=== PATIENT | female | born 1975 | race Two or more races ===

== ENCOUNTER 2019-06-28 06:18 | Observation (INO) | payer MEDICAID ==
[2019-06-26 11:47] LABS: Basophils % (Auto) 0.4 % (0.0-1.8); Eosinophils # (Auto) 0.1 K/mm3 (0.0-0.4); Eosinophils % (Auto) 1.8 % (0.0-4.3); Hematocrit 39.8 % (30.3-42.9); Hemoglobin 13.5 gm/dl (10.1-14.3); Lymphocytes % (Auto) 30.9 % (13.4-35.0); Mean Corpuscular HGB Conc 34 % (30-34); Mean Corpuscular Volume 87 fl (79-97); Monocytes # (Auto) 0.5 K/mm3 (0.0-0.8); Monocytes % (Auto) 8.1 % (0.0-7.3); Platelet Count 196 K/mm3 (140-440); Red Blood Count 4.59 M/mm3 (3.65-5.03); Red Cell Distribution Width 18.2 % (13.2-15.2)
[2019-06-26 11:57] LABS: BUN/Creatinine Ratio 10; Blood Urea Nitrogen 6 mg/dL (7-17); Calcium 8.7 mg/dL (8.4-10.2); Hemolysis Index 14
--- NOTE | 2019-06-26 12:50 | Anesthesia Consultation ---
Anesthesia Consult and Med Hx Date of service: 06/26/19 - Airway Anesthetic Teeth Evaluation: Good ROM Head & Neck: Adequate Mental/Hyoid Distance: Adequate Mallampati Class: Class II Intubation Access Assessment: Good - Pulmonary Exam CTA: Yes - Cardiac Exam Cardiac Exam: RRR - Pre-Operative Health Status ASA Pre-Surgery Classification: ASA2 Proposed Anesthetic Plan: General Nerve Block: TAP - Pulmonary Hx Smoking: Yes (Former smoker) - Cardiovascular System Hx Hypertension: Yes (x 1 yr) - Central Nervous System Hx Psychiatric Problems: No - Other Systems Hx Substance Use: Yes (Marijuana daily) Hx Cancer: No
[~2019-06-28 06:18] MED LIST: LACTATED RINGERS 1,000 ML IV SCH; NEURONTIN PO NR; SUBLIMAZE IV ONE; SUBLIMAZE IV PRN; VERSED IV NR
[2019-06-28] MEDS ORDERED: ANCEF/STERILE WATER 2 GM/20 ML IV NR (07:00)
[2019-06-28] MEDS ORDERED: DECADRON ONE ×2 (07:18→07:34)
[2019-06-28] MEDS ORDERED: ZOFRAN ONE (07:18)
[2019-06-28] MEDS ORDERED: BLOXIVERZ ONE (07:18)
[2019-06-28] MEDS ORDERED: XYLOCAINE MPF 2% ONE (07:18)
[2019-06-28] MEDS ORDERED: SUBLIMAZE ONE (07:18)
[2019-06-28] MEDS ORDERED: ROBINUL ONE (07:18)
[2019-06-28] MEDS ORDERED: DIPRIVAN 10 MG/ML IV ONE (07:18)
[2019-06-28] MEDS ORDERED: ZEMURON IV ONE (07:18)
[2019-06-28] MEDS ORDERED: KETAMINE 50 MG/ML-WATER SYRING ONE (07:19)
[2019-06-28] MEDS ORDERED: NEOSPORIN GU IR ONE ×2 (07:30→09:07)
[2019-06-28] MEDS ORDERED: MARCAINE-EPI 0.25%-1:200,000 INFILTRATI ONE (07:34)
--- NOTE | 2019-06-28 07:38 | History and Physical Report ---
History of Present Illness Date of examination: 06/28/19 Date of admission: 06/28/2019 Chief complaint: DUB History of present illness: 43y/o with dysfunctional uterine bleeding and dysmenorrhea. Pelvic ultrasound demonstrates leiomyomas with the largest being 4.4cm. The patient has failed medical management and elects to undergo definitive surgical management. Past History Past Medical History: hypertension Past Surgical History: section, other (reduction mammoplasty; spinal surgery) - Obstetrical History : 2 Para: 1 Hx # Term Pregnancies: 1 Number of Pregnancies: 0 Spontaneous Abortions: 1 Induced : 0 Number of Living Children: 1 Medications and Allergies Allergies Allergy/AdvReac Type Severity Reaction Status Date / Time alprazolam [From Xanax] Allergy Hives Verified 06/19/19 15:58 Home Medications Medication Instructions Recorded Confirmed Last Taken Type AtorvaSTATin [Lipitor] 20 mg PO QHS 06/19/19 06/28/19 06/14/19 20:00 History Spironolactone [Aldactone] 25 mg PO DAILY 06/19/19 06/28/19 06/14/19 09:00 History HYDROcodone/APAP 10-325 [[place] 10 mg PO Q6H PRN 06/26/19 06/28/19 06/14/19 09:00 History 10-325 mg TAB] amLODIPine [Norvasc] 5 mg PO DAILY 06/26/19 06/28/19 06/28/19 05:00 History Active Meds: Active Medications Cefazolin Sodium (Ancef/Sterile Water 2 Gm/20 Ml) 2 gm IV PREOP NR Stop: 06/28/19 23:59 Celecoxib (Celebrex) 200 mg PO PREOP NR Stop: 06/28/19 23:59 Last Admin: 06/28/19 06:45 Dose: 200 mg Documented by: Fentanyl (Sublimaze) 100 mcg IV ONCE PRN PRN Reason: sedation for nerve block Stop: 06/28/19 23:59 Gabapentin (Neurontin) 300 mg PO PREOP NR Stop: 06/28/19 23:59 Last Admin: 06/28/19 06:45 Dose: 300 mg Documented by: Lactated Ringer's (Lactated Ringers) 1,000 mls @ 100 mls/hr IV DIRECT FRANCISCO Last Admin: 06/28/19 07:00 Dose: 100 mls/hr Documented by: Review of Systems All systems: negative Genitourinary: vaginal bleeding, pelvic pain - Vital Signs Vital signs: Vital Signs Temp Pulse Resp BP Pulse Ox 98.5 F 68 18 131/73 99 06/26/19 10:55 06/26/19 10:55 06/26/19 10:55 06/26/19 10:55 06/26/19 10:55 Temp Pulse Resp BP Pulse Ox 97.9 F 76 18 121/84 98 06/28/19 06:30 06/28/19 06:30 06/28/19 06:45 06/28/19 06:30 06/28/19 06:30 - Physical Exam Breasts: Positive: deferred Cardiovascular: Regular rate Lungs: Positive: Clear to auscultation Abdomen: Positive: normal appearance Results Result Diagrams: 06/26/19 11:36 06/26/19 11:36 All other labs normal. Assessment and Plan - Patient Problems (1) Leiomyoma Current Visit: Yes Status: Acute Plan to address problem: proceed with robotic hysterectomy (2) Dysfunctional uterine bleeding Current Visit: Yes Status: Acute
--- NOTE | 2019-06-28 08:47 | Anesthesia Day of Surgery ---
Anesthesia Day of Surgery - Day of Surgery Patient Examined: Yes Patient H&P Reviewed: Yes Patient is NPO: Yes
[2019-06-28] MEDS ORDERED: NACL 0.9% IR ONE ×2 (09:07→09:08)
--- NOTE | 2019-06-28 09:22 | Operative Report ---
Operative Report Operative Report: Date of surgery: 06/28/2019 Preoperative diagnoses: Symptomatic uterine fibroids; menorrhagia; dysmenorrhea Postoperative diagnoses: Same as above Procedure: Robotic hysterectomy; bilateral salpingectomy Surgeon: Sun Zheng M.D. Regulatory Affairs Portfolio Leader: Dulce Hurtado Anesthesia: Gen. endotracheal anesthesia Estimated blood loss: 25 mL Pathology: Cervix, uterus, bilateral tubes, Leiomyomas Indication: 43-year-old with symptomatic uterine fibroids. The patient failed medical management and elected to undergo definitive surgical management. Procedure: The patient was taken to the operating room and given general endotracheal anesthesia without complication. She is prepped and draped in a normal sterile fashion. A bivalve speculum was placed in the patient's vagina and a single- tooth tenaculum placed on the anterior lip of the cervix. The uterus was sounded with the uterine sound. A [employer] uterine manipulator was placed in the bivalve speculum was then removed. Attention was then turned to the patient's abdomen where a millimeter supra umbilical skin incision was then made. A Veress needle was placed and peritoneal entry was verified water-filled syringe. Insufflation of the peritoneal cavity was performed with CO2 gas. The 12 mm trocar was then placed under direct visualization. An additional 8 mm trocar was placed on the patient's left and right lateral side just opposite of the supraumbilical trocar. An additional 5 mm right lateral trocar was then placed as the accessory port. The patient was then placed in steep Trendelenburg. The da Lavell robot was then engaged. A fenestrated forcep was placed in arm 2 and a vessel sealer was placed in arm 1. The surgeon then transferred to the surgical console. General survey revealed an enlarged fibroid uterus with multiple myomas. The tubes and ovaries were normal in appearance bilaterally. The mesosalpinx was then isolated on the right. The vessel sealer was used to coagulate the mesosalpinx which was then transected. The tube was transected from the ovary. The tubo-ovarian ligament was then coagulated and transected. The round ligament was then coagulated and transected also. The vesicouterine peritoneum was then entered from the patient's right side. The uterine vessels were then coagulated with the vessel sealer. The vessels were then transected . Attention was then turned to the patient's left side where the tubo-ovarian ligament and mesosalpinx were again isolated coagulated and transected. The vesical peritoneum was then entered from the left and joined in the midline. Peritoneum was reflected off of the lower uterine segment. Uterine vessels were then coagulated and then transected. The blood supply to the uterus was adequately contained, a posterior colpotomy was made. The V care ring was visualized. Posterior colpotomy was created with the monopolar scissors. The incision was continued circumferentially until anterior colpotomy was made. The cervix and uterus were amputated from the vaginal cuff. The monopolar scissors were used in order to extract of the myomas in order to decompress the uterus. Passage through the vagina. 2 leiomyomas were removed and the uterus was bivalved. The uterus was then removed along with the leiomyoma and tubes bilaterally through the vagina and a warm laparotomy sponge was placed and maintain the pneumoperitoneum. The vaginal cuff was then closed in a running fashion with V lock suture. Irrigation of the pelvis was performed. Hemoblast was applied to the incision. The supraumbilical 12 mm trocar site was closed with the Julián Banks device. The skin was then reapproximated with 4-0 Monocryl. The tissue was sent to pathology which included the cervix, leiomyomas, tubes and uterus. The patient was then successfully extubated. She was then taken to the recovery room in stable condition. All sponge laps and needle counts were correct x2.
[2019-06-28] MEDS ORDERED: PERCOCET 5/325 PO PRN (09:23)
[2019-06-28] MEDS ORDERED: AMBIEN PO PRN (09:23)
[2019-06-28] MEDS ORDERED: MORPHINE IV PRN (09:23)
[2019-06-28] MEDS ORDERED: ZOFRAN IV PRN (09:23)
[2019-06-28] MEDS ORDERED: IBUPROFEN PO PRN (09:23)
[2019-06-28] MEDS: DILAUDID IV PRN ×4 (09:50→10:26)
[2019-06-28] MEDS ORDERED: D5LR 1,000 ML IV SCH (10:00)
[2019-06-28] MEDS ORDERED: LACTATED RINGERS 1,000 ML ONE (10:23)
[2019-06-28] MEDS ORDERED: TORADOL ONE (10:25)
[2019-06-28] MEDS: TORADOL IV SCH ×3 (10:25→21:28)
[2019-06-28] MEDS ORDERED: AFLURIA QUAD 2019-2020 (3YR UP) IM ONE (11:32)
--- NOTE | 2019-06-28 11:32 | Post Anesthesia Evaluation ---
- Post Anesthesia Evaluation Patient Participated: Yes Airway Patent: Yes Stable Respiratory Function: Yes Nausea/Vomiting: No Temp > 96.8F: Yes Pain Manageable: Yes Adequeate Hydration: Yes Anesthesia Complications: No
[2019-06-29 03:38] LABS: Hemoglobin 12.6 gm/dl (10.1-14.3)
[2019-06-29] MEDS: TORADOL IV SCH (04:06)
--- NOTE | 2019-06-29 07:58 | Progress Note ---
Assessment and Plan - Patient Problems (1) Leiomyoma Current Visit: Yes Status: Acute Plan to address problem: patient doing well discharge home (2) Dysfunctional uterine bleeding Current Visit: Yes Status: Acute Subjective - Subjective Date of service: 06/29/19 Interval history: Patient without complaints. Reports tolerating clear diet. Pain controlled Patient reports: appetite normal, voiding normally, pain well controlled Objective - Vital Signs Latest vital signs: Vital Signs Temp Pulse Pulse Resp BP BP Pulse Ox 06/29/19 05:18 98.6 F 68 20 122/74 99 06/29/19 04:36 18 06/29/19 04:06 18 06/29/19 01:30 98.5 F 66 18 117/66 97 06/28/19 22:00 80 18 06/28/19 21:58 18 06/28/19 21:43 98.1 F 81 18 130/74 99 06/28/19 21:28 18 06/28/19 16:18 97.8 F 74 16 117/73 96 06/28/19 10:50 97.5 F L 81 16 146/76 96 06/28/19 10:45 74 16 135/77 96 06/28/19 10:30 98.5 F 74 15 129/74 96 06/28/19 10:27 66 14 129/76 96 06/28/19 10:26 14 06/28/19 10:25 14 06/28/19 10:17 14 06/28/19 10:14 79 14 155/78 100 06/28/19 10:10 16 06/28/19 10:00 68 16 140/77 100 06/28/19 09:50 100 H 16 127/66 100 06/28/19 09:41 97 F L 69 16 146/82 100 Intake and Output 06/28/19 06/29/19 06/29/19 22:59 06:59 14:59 Intake Total 360 240 Output Total 1500 1000 Balance -1140 -760 Intake: Oral 360 Intake, Free Water 240 Output: Urine 1500 1000 Indwelling Catheter 1500 1000 Other: Total, Intake Amount 360 Total, Output Amount 1000 400 Voiding Method Indwelling Catheter Indwelling Catheter - Exam Abdomen: Present: normal appearance
--- NOTE | 2019-06-29 08:00 | Discharge Summary ---
Providers - Providers Date of Admission: 06/28/19 09:23 Date of discharge: 06/29/19 Attending physician: TYRONE ELI Primary care physician: ZOË MO Hospitalization Reason for admission: other (uterine fibroids) Procedure: other (robotic hysterectomy and bilateral salpingectomy) Incision: normal Discharge diagnosis: other (Uterine fibroids) Hospital course: Patient was admitted the day of surgery and underwent a robotic hysterectomy. See operative note. Postop uncomplicated Condition at discharge: Good Disposition: DC-01 TO HOME OR SELFCARE - Discharge Diagnoses (1) Leiomyoma Status: Acute (2) Dysfunctional uterine bleeding Status: Acute Plan - Discharge Medications Prescriptions: Ibuprofen [Motrin] 800 mg PO Q8HR PRN #60 tablet PRN Reason: Pain, Mild (1-3) oxyCODONE /ACETAMINOPHEN [Percocet 5/325] 1 tab PO Q6HR PRN #30 tablet PRN Reason: Pain - Provider Discharge Summary Activity: no sex for 6 weeks, no heavy lifting 4 weeks, no strenuous exercise Diet: routine Instructions: routine Additional instructions: [] Smoking cessation referral if applicable(refer to patient education folder for contact #) [] Refer to [facility] Booklet Call your doctor immediately for: * Fever > 100.5 * Heavy vaginal bleeding ( >1 pad per hour) * Severe persistent headache * Shortness of breath * Reddened, hot, painful area to leg or breast * Drainage or odor from incision. * Keep incision clean and dry at all times and follow doctor's instructions regarding bathing/showering schedule followup in 4 weeks - Follow up plan
[2019-06-29 09:04] VITALS: BP 127/74
== END 2019-06-29 09:56 | disposition home or self-care (01) ==
LOC: OR 06:18 → OB 09:23 → UNDODISOB 06-29 09:07
PROVIDERS: ADMIT Obstetrics & Gynecology; ATTEND Obstetrics & Gynecology
DX: D21.9 Benign neoplasm of connective and other soft tissue, unspecified (principal); N92.0 Excessive and frequent menstruation with regular cycle; I10 Essential (primary) hypertension
CPT/HCPCS: 36415; 58554; 80048; 84703; 85014; 85018; 85025; 86850; 86900; 86901; 88307; 96374; 96375; 96376; A4217; G0378; J0690; J1100; J1170; J1885; J2270; J2405; J2704; J2710; J3010; J7120; J7121; S2900; 90686

== ENCOUNTER 2019-07-16 05:16 | Emergency (ER) | payer MEDICAID ==
[2019-07-16 05:58] LABS: Bilirubin,Urine NEG (Negative); Blood,Urine LG (Negative); Color,Urine Yellow (Yellow); Mucus,Urine FEW /HPF; Protein,Urine <15 mg/dL mg/dL (Negative); Urobilinogen,Urine < 2.0 mg/dL (<2.0)
[2019-07-16 05:59] LABS: RBC,Urine > 182.0 /HPF (0.0-6.0)
[2019-07-16 06:31] LABS: Basophils % (Auto) 0.9 % (0.0-1.8); Eosinophils # (Auto) 0.3 K/mm3 (0.0-0.4); Hematocrit 39.9 % (30.3-42.9); Hemoglobin 13.4 gm/dl (10.1-14.3); Lymphocytes # (Auto) 1.7 K/mm3 (1.2-5.4); Lymphocytes % (Auto) 37.2 % (13.4-35.0); Mean Corpuscular HGB Conc 34 % (30-34); Mean Corpuscular Volume 88 fl (79-97); Monocytes # (Auto) 0.4 K/mm3 (0.0-0.8); Monocytes % (Auto) 8.9 % (0.0-7.3); Platelet Count 177 K/mm3 (140-440); Red Blood Count 4.55 M/mm3 (3.65-5.03); Red Cell Distribution Width 17.1 % (13.2-15.2)
[2019-07-16 06:56] LABS: Alanine Aminotransferase 12 units/L (7-56); Albumin 4.2 g/dL (3.9-5); BUN/Creatinine Ratio 16; Blood Urea Nitrogen 11 mg/dL (7-17); Calcium 8.4 mg/dL (8.4-10.2); Hemolysis Index 16
[2019-07-16] MEDS ORDERED: IBUPROFEN 600 MG TAB PO ONE (11:02)
--- NOTE | 2019-07-16 11:05 | Emergency Department Report ---
ED General Adult HPI - General Chief complaint: Abdominal Pain Stated complaint: VAG BLEEDING/CLOTS Time Seen by Provider: 07/16/19 11:00 Source: patient Mode of arrival: Ambulatory Limitations: No Limitations - History of Present Illness Initial comments: 43-year-old -[place] female presents to the emergency room complaining of pelvic pain and passing large blood clots. Patient reports she had a hysterectomy 2 weeks ago. Patient reports that the pain is in her lower abdomen and back. Patient reports she had a hysterectomy secondary to having fibroids. The hysterectomy was done by laparoscopic I Dr. Carvajal. Patient states she started having bleeding on Wednesday was just spotting and had gone through one box of pantiliners until Wednesday. She reports Wednesday she started going to pantiliners. Patient reports this morning she had a gush of blood this morning with a fist size blood clot. Patient reports her pain as a 7 out of 10. Patient has a past medical history of hypertension hypercholesterolemia. Patient is currently on amlodipine 5 mg simvastatin 20 mg and Aldactone 25 mg. Patient denies any fever or chills no nausea no vomiting no diarrhea. Onset/Timin -: days(s) Location: pelvis Radiation: back Severity scale (0 -10): 7 Quality: aching Consistency: constant Improves with: none Worsens with: none - Related Data Home Medications Medication Instructions Recorded Confirmed Last Taken AtorvaSTATin [Lipitor] 20 mg PO QHS 06/19/19 06/28/19 06/14/19 20:00 Spironolactone [Aldactone] 25 mg PO DAILY 06/19/19 06/28/19 06/14/19 09:00 HYDROcodone/APAP 10-325 [[place] 10 mg PO Q6H PRN 06/26/19 06/28/19 06/14/19 09:00 10-325 mg TAB] amLODIPine 5 mg PO DAILY 06/26/19 06/28/19 06/28/19 05:00 Previous Rx's Medication Instructions Recorded Last Taken Type Ibuprofen [Motrin] 800 mg PO Q8HR PRN #60 tablet 06/29/19 Unknown Rx oxyCODONE /ACETAMINOPHEN [Percocet 1 tab PO Q6HR PRN #30 tablet 06/29/19 Unknown Rx 5/325] Allergies Allergy/AdvReac Type Severity Reaction Status Date / Time alprazolam [From Xanax] Allergy Hives Verified 06/19/19 15:58 ED Review of Systems ROS: Stated complaint: VAG BLEEDING/CLOTS Other details as noted in HPI Comment: All other systems reviewed and negative ED Past Medical Hx - Past Medical History Previous Medical History?: Yes Hx Hypertension: Yes Additional medical history: High Cholesterol - Surgical History Past Surgical History?: Yes Additional Surgical History: Hysterectomy - Social History Smoking Status: Never Smoker Substance Use Type: None - Medications Home Medications: Home Medications Medication Instructions Recorded Confirmed Last Taken Type AtorvaSTATin [Lipitor] 20 mg PO QHS 06/19/19 06/28/19 06/14/19 20:00 History Spironolactone [Aldactone] 25 mg PO DAILY 06/19/19 06/28/19 06/14/19 09:00 History HYDROcodone/APAP 10-325 [[place] 10 mg PO Q6H PRN 06/26/19 06/28/19 06/14/19 09:00 History 10-325 mg TAB] amLODIPine 5 mg PO DAILY 06/26/19 06/28/19 06/28/19 05:00 History Ibuprofen [Motrin] 800 mg PO Q8HR PRN #60 tablet 06/29/19 Unknown Rx oxyCODONE /ACETAMINOPHEN [Percocet 1 tab PO Q6HR PRN #30 tablet 06/29/19 Unknown Rx 5/325] ED Physical Exam - General Limitations: No Limitations General appearance: alert, in no apparent distress - Head Head exam: Present: atraumatic, normocephalic - Eye Eye exam: Present: normal appearance - ENT ENT exam: Present: mucous membranes moist - Neck Neck exam: Present: normal inspection - Respiratory Respiratory exam: Present: normal lung sounds bilaterally. Absent: respiratory distress - Cardiovascular Cardiovascular Exam: Present: regular rate, normal rhythm. Absent: systolic murmur, diastolic murmur, rubs, gallop - GI/Abdominal GI/Abdominal exam: Present: soft, tenderness (suprapubic). Absent: distended - Back Exam Back exam: Present: full ROM - Neurological Exam Neurological exam: Present: alert, oriented X3 - Psychiatric Psychiatric exam: Present: normal affect, normal mood - Skin Skin exam: Present: warm, dry, intact, normal color. Absent: rash ED Course Vital Signs 07/16/19 07/16/19 05:22 09:16 Temperature 98.6 F Pulse Rate 66 68 Respiratory 18 16 Rate Blood Pressure 146/85 Blood Pressure 154/90 [Left] O2 Sat by Pulse 99 100 Oximetry ED Medical Decision Making - Lab Data Result diagrams: 07/16/19 05:53 07/16/19 05:53 Laboratory Tests 07/16/19 07/16/19 07/16/19 05:45 05:53 05:53 WBC 4.7 RBC 4.55 Hgb 13.4 Hct 39.9 MCV 88 MCH 30 MCHC 34 RDW 17.1 H Plt Count 177 Lymph % (Auto) 37.2 H Major % (Auto) 8.9 H Eos % (Auto) 7.0 H Baso % (Auto) 0.9 Lymph # 1.7 Major # 0.4 Eos # 0.3 Baso # 0.0 Seg Neutrophils % 46.0 Seg Neutrophils # 2.2 Sodium 140 Potassium 3.8 Chloride 106.2 Carbon Dioxide 24 Anion Gap 14 BUN 11 Creatinine 0.7 Estimated GFR > 60 BUN/Creatinine Ratio 16 Glucose 89 Calcium 8.4 Total Bilirubin 0.20 AST 16 ALT 12 Alkaline Phosphatase 72 Total Protein 7.5 Albumin 4.2 Albumin/Globulin Ratio 1.3 Urine Color Yellow Urine Turbidity Clear Urine pH 5.0 Ur Specific [place] 1.012 Urine Protein <15 mg/dl Urine Glucose (UA) Neg Urine Ketones Neg Urine Blood Lg Urine Nitrite Neg Urine Bilirubin Neg Urine Urobilinogen < 2.0 Ur Leukocyte Esterase Neg Urine WBC (Auto) 32.0 H Urine RBC (Auto) > 182.0 Urine Mucus Few - Radiology Data Radiology results: report reviewed Patient: JOANA LEIVA MR #: [id number] : 1975 Acct:[id number] Age/Sex: 43 / F ADM Date: 07/16/19 Loc: ED Attending Dr: Ordering Physician: CATIE FRAZIER Date of Service: 07/16/19 Procedure(s): US pelvic complete Accession Number(s): [id number] cc: CATIE FRAZIER EXAMINATION: Complete pelvic ultrasound, 07/16/2019 CLINICAL INFORMATION: Pelvic pain after hysterectomy 2 weeks ago. COMPARISON: None. FINDINGS: Transabdominal imaging was performed. The uterus is surgically absent. The adnexal regions are not clearly visualized. No free pelvic fluid is seen. IMPRESSION: No sonographic evidence of acute intrapelvic abnormality. Signer Name: Chloe Berry MD Signed: 07/16/2019 12:13 PM Workstation Name: [id number] Transcribed By: JOHNATHON Dictated By: Chloe Berry MD Electronically Authenticated By: Chloe Berry MD Signed Date/Time: 07/16/191212 DD/ 11 TD/TT: - Medical Decision Making 43-year-old -[place] female presents to the emergency room complaining of pelvic pain and passing large blood clots. Patient reports she had a hysterectomy 2 weeks ago. Patient reports that the pain is in her lower abdomen and back. Patient reports she had a hysterectomy secondary to having fibroids. The hysterectomy was done by laparoscopic I Dr. Carvajal. Patient states she started having bleeding on Wednesday was just spotting and had gone through one box of pantiliners until Wednesday. She reports Wednesday she started going to pantiliners. Patient reports this morning she had a gush of blood this morning with a fist size blood clot. Patient reports her pain as a 7 out of 10. Patient has a past medical history of hypertension hypercholesterolemia. Patient is currently on amlodipine 5 mg simvastatin 20 mg and Aldactone 25 mg. Patient denies any fever or chills no nausea no vomiting no diarrhea. Pelvic ultrasounds been ordered. Basic laceration been ordered. Ibuprofen 600 mg ordered for pain management. Patient be continue monitor. Pelvic exam will be ordered as well. Critical care attestation.: If time is entered above; I have spent that time in minutes in the direct care of this critically ill patient, excluding procedure time. ED Disposition Clinical Impression: Vaginal bleeding Disposition: DC-01 TO HOME OR SELFCARE Is pt being admited?: No Does the pt Need Aspirin: No Condition: Stable Instructions: Abdominal Pain (ED) Additional Instructions: Pelvic ultrasound was negative for any concerns or abnormalities. Your blood vitamins status is within normal limits no concerns for anemia. Please continue taking your pain medication and follow up with her [employer] provider in 2-3 days. Referrals: OTONIEL GUZMÁN MD [Referring] - 3-5 Days TYRONE ELI MD [Staff Physician] - 3-5 Days Forms: Accompanied Note, Work/School Release Form(ED)
--- NOTE | 2019-07-16 12:17 | Ultrasound Report ---
EXAMINATION: Complete pelvic ultrasound, 07/16/2019 CLINICAL INFORMATION: Pelvic pain after hysterectomy 2 weeks ago. COMPARISON: None. FINDINGS: Transabdominal imaging was performed. The uterus is surgically absent. The adnexal regions are not clearly visualized. No free pelvic fluid is seen. IMPRESSION: No sonographic evidence of acute intrapelvic abnormality. Signer Name: Chloe Berry MD Signed: 07/16/2019 12:13 PM Workstation Name: [id number]
[2019-07-16 13:05] VITALS: BP 127/86
== END 2019-07-16 13:05 | disposition home or self-care (01) ==
LOC: ED 05:16
DX: R10.2 Pelvic and perineal pain (principal); N93.9 Abnormal uterine and vaginal bleeding, unspecified; I10 Essential (primary) hypertension; E78.00 Pure hypercholesterolemia, unspecified
CPT/HCPCS: 36415; 76856; 80053; 81001; 85025; 87086